=== PATIENT | male | born 1965 | race Caucasian/White ===

== ENCOUNTER → 2023-07-28 10:29 | Outpatient (REF) | payer BC, SELFPAY | LOC: RCS 10:29 | PROVIDERS: ATTENDING PHYSICIAN Family Medicine | DX: E66.9 Obesity, unspecified (principal); R07.9 Chest pain, unspecified; I10 Essential (primary) hypertension; Z87.891 Personal history of nicotine dependence | CPT/HCPCS: 93017 ==

== ENCOUNTER → 2023-07-30 13:50 | Outpatient (REF) | payer BC, SELFPAY | LOC: DHCBC HW 13:50 | PROVIDERS: ATTENDING PHYSICIAN Internal Medicine Cardiovascular Disease; FAMILY PHYSICIAN Family Medicine | DX: R00.2 Palpitations (principal); I49.3 Ventricular premature depolarization | CPT/HCPCS: 93306 ==

== ENCOUNTER → 2023-08-05 11:39 | Outpatient (REF) | payer BC, SELFPAY | LOC: DHCBC/DCA 11:39 | PROVIDERS: ATTENDING PHYSICIAN Internal Medicine Cardiovascular Disease; FAMILY PHYSICIAN Family Medicine | DX: R00.2 Palpitations (principal); I49.3 Ventricular premature depolarization; R94.39 Abnormal result of other cardiovascular function study | CPT/HCPCS: 78452; 93017; A9500 ==

== ENCOUNTER → 2023-08-07 10:06 | Outpatient (REF) | payer BC, SELFPAY | LOC: RCS 10:06 | PROVIDERS: ATTENDING PHYSICIAN Internal Medicine Cardiovascular Disease; FAMILY PHYSICIAN Nurse Practitioner Family | DX: R00.2 Palpitations (principal); I49.3 Ventricular premature depolarization | CPT/HCPCS: 93225; 93226 ==